=== PATIENT | female | born 1955 | race Caucasian/White ===

== ENCOUNTER 2022-12-07 08:36 | Observation (INO) | payer MEDICARE, OTHER ==
[2022-12-04 12:56] VITALS: BMI 26.5
[2022-12-07] MEDS ORDERED: Acetaminophen 500 MG TAB ONE (09:16)
[2022-12-07] MEDS ORDERED: LevoFLOXacin 500 mg/D5W 100 ML BAG ONE (10:22)
[2022-12-07] MEDS ORDERED: Thrombin 5000 UNITS/5 ML VIAL ONE (11:09)
[2022-12-07] MEDS ORDERED: Vancomycin 1 GM VIAL ONE (11:09)
[2022-12-07] MEDS ORDERED: fentaNYL 50 mcg/mL 1 mL Vial ONE ×3 (11:23→15:39)
[2022-12-07] MEDS ORDERED: SUGAMMADEX SODIUM 200 MG/2 ML VIAL ONE (11:23)
[2022-12-07] MEDS ORDERED: Famotidine/PF 20 mg/2ml Vial ONE (11:23)
[2022-12-07] MEDS ORDERED: Clindamycin/D5W 900 mg/50 ml Premix Bag ONE (11:27)
[2022-12-07] MEDS ORDERED: PROPOFOL 200 MG/20 ML VIAL ONE (12:08)
[2022-12-07] MEDS ORDERED: Metoclopramide HCl 10 MG/2 ML VIAL ONE (12:08)
[2022-12-07] MEDS ORDERED: PHENYLEPHRINE-NS 100 MCG/ML 10 ML SYRINGE ONE (12:08)
[2022-12-07] MEDS ORDERED: Dexamethasone 20 MG/5 ML VIAL ONE (12:08)
[2022-12-07] MEDS ORDERED: Rocuronium Bromide 10 MG/ML (10ML VIAL) ONE (12:08)
[2022-12-07] MEDS ORDERED: Ketorolac Tromethamine 30 MG/ML VIAL ONE (12:08)
[2022-12-07] MEDS ORDERED: ePHEDrine Sulfate 50 MG/10 ML VIAL ONE (12:08)
[2022-12-07] MEDS ORDERED: Lidocaine 1% PF 5 ML VIAL ONE (12:08)
[2022-12-07] MEDS ORDERED: Ondansetron PF 4 MG/2 ML Vial ONE (12:08)
[2022-12-07] MEDS ORDERED: diphenhydrAMINE 25 MG CAP PO PRN (14:51)
[2022-12-07] MEDS ORDERED: Ondansetron PF 4 MG/2 ML Vial IVP PRN (14:51)
[2022-12-07] MEDS ORDERED: Acetaminophen 325 MG TAB PO PRN (14:51)
[2022-12-07] MEDS ORDERED: Morphine 2 MG/ML VIAL SLOW IVP PRN ×2 (14:51→15:44)
[2022-12-07] MEDS ORDERED: HYDROcodone/Acetaminophen 7.5/325 mg Tablet PO PRN (14:51)
[2022-12-07] MEDS ORDERED: traMADol HCl 50 MG TAB PO PRN ×4 (14:51→15:43)
[2022-12-07] MEDS ORDERED: hydrALAZINE 20 MG/ML VIAL SLOW IVP PRN (14:54)
[2022-12-07] MEDS ORDERED: Clindamycin/D5W 900 MG in Premix Bag 1 BAG IVPB SCH (15:00)
[2022-12-07] MEDS ORDERED: tiZANidine HCl 4 MG TAB ONE (15:50)
[2022-12-07] MEDS: tiZANidine HCl 4 MG TAB PO PRN (16:00)
[2022-12-07] MEDS: Benzonatate 100 MG CAP PO SCH ×2 (18:00→20:08)
[2022-12-07] MEDS: Sodium Chloride 0.9% 1,000 ML IV SCH (18:01)
[2022-12-07] MEDS: DULoxetine 60 MG CAP PO SCH (20:08)
[2022-12-07] MEDS: Clindamycin/D5W 900 MG in Premix Bag 1 BAG IVPB SCH (20:08)
[2022-12-08] MEDS: Clindamycin/D5W 900 MG in Premix Bag 1 BAG IVPB SCH (04:12)
[2022-12-08] MEDS: Sodium Chloride 0.9% 1,000 ML IV SCH (04:13)
[2022-12-08] MEDS ORDERED: Levothyroxine Sodium 50 MCG TAB PO SCH (06:00)
[2022-12-08 06:09] LABS: #Monocytes 0.2 thou/uL (0.11-0.59); #Neutrophils 12.9 thou/uL (1.40-6.50); %Basophils 0.1 % (0.0-1.0); %Lymphocytes 4.6 % (21.0-51.0); %Monocytes 1.7 % (0.0-10.0); %Neutrophils 92.9 % (42.0-75.0); Hemoglobin 10.3 g/dL (12.0-16.0); Mean Corpuscular HGB CONC 34.3 g/dL (32.0-36.0); Mean Corpuscular Hemoglobin 31.8 pg (27.0-31.0); Mean Corpuscular Volume 92.6 fl (78.0-98.0); Mean Platelet Volume 10.1 fL (7.4-10.4); Platelet Count 237 10x3/uL (130-400); RBC Distribution Width 12.3 % (11.5-14.5); Red Blood Cell (RBC) Count 3.24 mill/uL (4.20-5.40); White Blood Cell (WBC) Count 13.8 10x3/uL (4.8-10.8)
[2022-12-08 06:26] LABS: Anion Gap 11 mmol/L (10-20); BUN (Urea Nitrogen) 14 mg/dL (9.8-20.1); Calc. Creatinine Clearance 76 mL/min (70-130); Calcium 9.2 mg/dL (7.8-10.44); Carbon Dioxide 23 mmol/L (23-31); Chloride 106 mmol/L (98-107); Estimated GFR 84; Glucose 131 mg/dL (80-115); Potassium 4.4 mmol/L (3.5-5.1); Sodium 136 mmol/L (136-145)
[2022-12-08 08:02] VITALS: BP 121/69; TEMP 98.4
[2022-12-08] MEDS: Benzonatate 100 MG CAP PO SCH (08:29)
[2022-12-08] MEDS: DULoxetine 60 MG CAP PO SCH (08:30)
[2022-12-08] MEDS: tiZANidine HCl 4 MG TAB PO PRN (08:36)
[2022-12-08] MEDS ORDERED: LEVOMEFOLATE CALCIUM 15 MG PO SCH (09:00)
[2022-12-08] MEDS ORDERED: lamoTRIgine 25 MG TAB PO SCH (09:00)
== END 2022-12-08 09:50 | disposition home or self-care (01) ==
LOC: SDC 08:36 → SURG A 16:45
PROVIDERS: ADMIT Surgery; ATTEND Surgery
PROC: 00NY0ZZ Release Lumbar Spinal Cord, Open Approach (ICD-10-PCS; principal; 2022-12-07)
PROC: 0SB20ZZ Excision of Lumbar Vertebral Disc, Open Approach (ICD-10-PCS; 2022-12-07)
PROC: 00NY0ZZ Release Lumbar Spinal Cord, Open Approach (ICD-10-PCS; 2022-12-07)
DX: M48.061 Spinal stenosis, lumbar region without neurogenic claudication (principal); M54.16 Radiculopathy, lumbar region; M51.26 Other intervertebral disc displacement, lumbar region
CPT/HCPCS: 63047; 63048; 80048; 85025; 96374; 96376; G0378 ×2; J3010; 36415; J1100; J1885; J1956; J2405; J2704; J2765; J3370; J3490; S0028

== ENCOUNTER 2023-08-21 05:38 | Inpatient (IN) | payer MEDICARE, OTHER ==
[2023-08-17 14:40] VITALS: BMI 26.6
[2023-08-21] MEDS ORDERED: fentaNYL PF 100 MCG/2 ML SYRINGE ONE ×2 (06:46→09:37)
[2023-08-21] MEDS ORDERED: Vancomycin 1 GM VIAL ONE (06:46)
[2023-08-21] MEDS ORDERED: PROPOFOL 20 ML ONE (06:46)
[2023-08-21] MEDS ORDERED: Thrombin 5000 UNITS/5 ML VIAL ONE ×3 (06:46→10:48)
[2023-08-21] MEDS ORDERED: Lidocaine 1% PF 5 ML VIAL ONE (06:48)
[2023-08-21] MEDS ORDERED: Rocuronium Bromide 10 MG/ML (10ML VIAL) ONE (06:48)
[2023-08-21] MEDS ORDERED: LevoFLOXacin D5W 500 mg (100 mL) BAG ONE (07:13)
[2023-08-21] MEDS ORDERED: Clindamycin/D5W 900 mg/50 ml Premix Bag ONE (07:14)
[2023-08-21] MEDS ORDERED: Famotidine/PF 20 mg/2ml Vial ONE (07:23)
[2023-08-21 07:45] LABS: INR-International Normal Ratio 0.9; PTT 27.4 sec (22.9-36.1); Prothrombin Time 12.3 sec (12.0-14.7)
[2023-08-21] MEDS ORDERED: ePHEDrine Sulfate 50 MG/10 ML VIAL ONE (08:12)
[2023-08-21] MEDS ORDERED: Phenylephrine 10 MG/ML VIAL ONE (09:19)
[2023-08-21] MEDS ORDERED: Ondansetron PF 4 MG/2 ML Vial ONE (09:30)
[2023-08-21] MEDS ORDERED: Dexamethasone 20 MG/5 ML VIAL ONE (09:30)
[2023-08-21] MEDS ORDERED: Dexmedetomidine 200 MCG/2 ML VIAL ONE (10:32)
[2023-08-21] MEDS ORDERED: Promethazine HCl 25 MG/ML VIAL IM PRN ×2 (10:55→11:01)
[2023-08-21] MEDS ORDERED: HYDROmorphone 2 MG/ML VIAL SLOW IVP PRN (10:55)
[2023-08-21] MEDS ORDERED: Ondansetron HCl/PF 4 MG/2 ML Vial IVP PRN (10:55)
[2023-08-21] MEDS ORDERED: diphenhydrAMINE 25 MG CAP PO PRN ×2 (11:01→11:05)
[2023-08-21] MEDS ORDERED: Naloxone HCl 0.4 mg/ml Vial IV PRN (11:01)
[2023-08-21] MEDS ORDERED: diphenhydrAMINE 50 MG/ML VIAL IM PRN (11:01)
[2023-08-21] MEDS ORDERED: diphenhydrAMINE 50 MG/ML VIAL IVP PRN (11:01)
[2023-08-21] MEDS ORDERED: Ondansetron PF 4 MG/2 ML Vial IVP PRN ×2 (11:01→11:05)
[2023-08-21] MEDS ORDERED: FENTANYL 500 MCG/10 ML VIAL 2,000 MCG in Sodium Chloride 0.9% 60 ML IV PRN (11:01)
[2023-08-21] MEDS ORDERED: Ketorolac Tromethamine 30 MG (1 mL) VIAL IVP PRN (11:05)
[2023-08-21] MEDS ORDERED: Milk Of Magnesia 30 ML UDCUP PO PRN (11:05)
[2023-08-21] MEDS ORDERED: Acetaminophen 325 MG TAB PO PRN (11:05)
[2023-08-21] MEDS ORDERED: SUGAMMADEX SODIUM 200 MG/2 ML VIAL ONE (11:07)
[2023-08-21] MEDS ORDERED: hydrALAZINE 20 MG/ML VIAL SLOW IVP PRN (11:08)
[2023-08-21] MEDS ORDERED: ACTIVE PCA FS PRN (11:15)
[2023-08-21] MEDS: Clindamycin/D5W 900 MG in Premix 1 BAG IVPB SCH (17:00)
[2023-08-21] MEDS: DULoxetine 60 MG CAP PO SCH (17:00)
[2023-08-21] MEDS: Sodium Chloride 0.9% 1,000 ML IV SCH (17:00)
[2023-08-21] MEDS: Cholecalciferol 1,000 UNITS (25 MCG) TAB PO SCH (21:19)
[2023-08-21] MEDS: Magnesium Oxide 250 MG TAB PO SCH (21:19)
[2023-08-22] MEDS: Levothyroxine Sodium 50 MCG TAB PO SCH (05:30)
[2023-08-22 06:24] LABS: #Monocytes 0.6 thou/uL (0.11-0.59); #Neutrophils 11.1 thou/uL (1.40-6.50); %Basophils 0.1 % (0.0-1.0); %Lymphocytes 5.9 % (21.0-51.0); %Monocytes 4.7 % (0.0-10.0); Hematocrit 28.2 % (36.0-47.0); Hemoglobin 9.4 g/dL (12.0-16.0); Mean Corpuscular HGB CONC 33.3 g/dL (32.0-36.0); Mean Corpuscular Hemoglobin 31.6 pg (27.0-31.0); Mean Corpuscular Volume 94.9 fl (78.0-98.0); Mean Platelet Volume 10.9 fL (7.4-10.4); Platelet Count 198 10x3/uL (130-400); RBC Distribution Width 12.8 % (11.5-14.5); Red Blood Cell (RBC) Count 2.97 mill/uL (4.20-5.40); White Blood Cell (WBC) Count 12.5 10x3/uL (4.8-10.8)
[2023-08-22 06:54] LABS: Anion Gap 9 mmol/L (10-20); BUN (Urea Nitrogen) 14 mg/dL (9.8-20.1); Calc. Creatinine Clearance 84 mL/min (70-130); Calcium 8.7 mg/dL (7.8-10.44); Carbon Dioxide 26 mmol/L (23-31); Chloride 109 mmol/L (98-107); Estimated GFR 92; Glucose 156 mg/dL (80-115); Potassium 4.7 mmol/L (3.5-5.1); Sodium 139 mmol/L (136-145)
[2023-08-22] MEDS ORDERED: HYDROcodone/Acetaminophen 5/325 mg Tablet PO PRN (08:33)
[2023-08-22] MEDS: LevoFLOXacin 750 mg/D5W 750 MG in Premix 1 BAG IVPB SCH (09:54)
[2023-08-22] MEDS: lamoTRIgine 25 MG TAB PO SCH (09:59)
[2023-08-22] MEDS: traMADol HCl 50 MG TAB PO PRN (23:12)
[2023-08-23] MEDS: LEVOMEFOLATE CALCIUM 15 MG PO SCH (07:29)
[2023-08-23] MEDS: tiZANidine HCl 4 MG TAB PO PRN (14:02)
[2023-08-24] MEDS: HYDROcodone/Acetaminophen 5/325 mg Tablet PO PRN (06:28)
[2023-08-24] MEDS: FLU VACC QS2023(65UP)/MF59C/PF 60 MCG/0.5 ML SYRINGE IM ONE (14:57)
[2023-08-25 11:46] VITALS: BP 125/69; TEMP 98.8
== END 2023-08-25 11:39 | disposition home or self-care (01) | DRG 460 ==
LOC: SDC 05:38 → T4-A 15:17 → OBSVTOIN 08-22 08:33
PROVIDERS: ADMIT Surgery; ATTEND Surgery
PROC: 0SG00AJ Fusion of Lumbar Vertebral Joint with Interbody Fusion Device, Posterior Approach, Anterior Column, Open Approach (ICD-10-PCS; principal; 2023-08-21)
PROC: 0SB20ZZ Excision of Lumbar Vertebral Disc, Open Approach (ICD-10-PCS; 2023-08-21)
DX: M48.062 Spinal stenosis, lumbar region with neurogenic claudication (principal); M71.30 Other bursal cyst, unspecified site; M54.16 Radiculopathy, lumbar region; M48.061 Spinal stenosis, lumbar region without neurogenic claudication; I11.9 Hypertensive heart disease without heart failure; E03.9 Hypothyroidism, unspecified; M43.16 Spondylolisthesis, lumbar region; M71.38 Other bursal cyst, other site; F32.A Depression, unspecified; Z88.2 Allergy status to sulfonamides; Z88.0 Allergy status to penicillin; Z88.1 Allergy status to other antibiotic agents
CPT/HCPCS: 36415; 51701; 80048; 85025; 85610; 85730; 86850; 86900; 86901; 93005; 93010; 93970; 96374; 96376; A4314; C1713; C1889; G0378; J1100; J1956; J2371; J2405; J2704; J3010; J3370; J3490; J7050; S0028